=== PATIENT | female | born 1995 | race Caucasian/White ===

== ENCOUNTER 2018-06-17 10:00 | Outpatient (RCR) | payer MEDICAID, SELFPAY ==
--- NOTE | 2018-05-19 08:44 | IE_ITS ---
Date: May 19, 2018 Referring: Agustin May PA-C M.D. Diagnosis: right patellofemoral syndrome SUBJECTIVE: History of Present Illness: Key reports she sustained an injury on March 27 when she squatted to make a bed at home. She felt a pop and a crack in her knee once she resumed the standing position. This was in the right knee. Since that time she has had increased pain in the medial aspect of the patella. She elevates the knee for symptom reduction. Pain Ratin/10 at time of I.E. and 9/10 at its worst Prior Level of Function: Independent with all ambulation and transfers. Current Level of Function: Pain with sit to stand transfers, pain with stairs up and down, pain with transferring out of her car and pain with squatting. Previous Treatment: The patient had a couple of visits at [facility] where she received a stretch and was Geronimo taped. This did offer good symptom control, for an hour, but then became dislodged. There was apparently communication deficits with the PT. facility and the patient, therefore she never received further treatment. Comorbidities: Junior Schlatter both knees. Poor tolerance to NSAIDS secondary to liver issues as a child, with use of liquid gel tab NSAIDS (Advil) . Chronic headaches, nervous and anxiety. Recent weight gain. Asthma. Falls in the last year: __x__ No ____Yes - How many? ____ - (if over 2, balance SM needs to be completed) Reported hospitalizations in the last year - __x__ No ____ Yes - Dates of admission/reason: Quality of Life: __x__ Good Standardized Measures: LEFS score: __61%__ OBJECTIVE: Posture: Morbidly obese female with genu recurvatum bilaterally and moderate pronation bilaterally. She has a pendulous abdomen. She has level iliac crests. Tends to shift her weight to the left to deweight her right leg secondary to medial patella pain. Gait: Mildly antalgic with decreased stance phase on the right. Palpation: Pain with palpation along the medial patella border and medial femoral condyle. Painfree across the medial joint line and MCL. Painfree through the popliteal fossa and painfree through the quad tendon. Edema: N/A Girth measurements: 49.5 cm. left mid pole of the patella vs. 50 cm. right ROM: Hip ROM grossly full with flexion being limited due to patient's pendulous abdomen, abduction 35 to 40 , external rotation 35 A and 40 AA, internal rotation 20 A and 30 AA bilaterally. Knee flexion 108 right with mild end range discomfort compared to 115 left. Foot alignment: 10 to 12 of rearfoot eversion bilaterally. This is WNL in subtalar neutral WB and NWB positions. Strength: 4-/5 quads on the right with mild pain; 4+/5 on the left without pain. Hamstring 4-/5 right; 4/5 left. Glute medius 4-/5 right; 4/5 left. Glute elana 4/5 right; 4+/5 left. She is able to heel and toe walk. Special Tests: (+) Brandin sign. (+) Waldrons. (+) patella compression. (-) varus / valgus. (-) anterior drawer. (-) thessaly. (-) bounce home. Treatment: IE: 85527 x1 Therapeutic procedure: 96751 x1 Patient Education: I.E. followed by patient instruction in a HEP of glute medius strengthening with side lying hip abduction and piriformis strengthening with clamshells as well as SLR, quad sets and an IT band / piriformis posterior hip capsule stretch. Also, issued a Corflex patella stabilizer, which she found to be quite benefit with the step test on an 8 standard stool, for both step up and down for concentric and eccentric loading. Direct treatment time: 2:00 til 3:00 P.M. ASSESSMENT: Patient is a 22-year-old female, referred for PT services with the diagnosis of right patellofemoral syndrome. Patient presents with clinical signs and symptoms consistent with this diagnosis, as demonstrated by the following impairment level findings: impaired joint mobility, motor function, muscle performance and ROM associated with connective tissue dysfunction and localized inflammation Impairments are contributing to the following functional limitations: as listed above Patient is assessed as: __[X]__ Low 33987 complexity, based on the following : History: (list): See comorbidities and social history Examination: (list): See above for functional limitations and impairments. Presentation: [X] Stable . Decision-Making: [X] Low complexity ____ Patient requires skilled PT intervention to remediate the above functional limitations to return to: __x__ Return to full functional mobility *She may also benefit from off the shelf orthotics to restore subtalar joint neutral position. I do not think she is a very good candidate for accommodative orthotics due to her weight. If the off the shelf orthotics do not benefit her she may require casting for permanent orthotics. Prognosis: __x__ Good STG: __6__ weeks. 1) decrease pain by 25% 2) patient independent with her HEP 3) increase right LE strength by 1/2 grade or more 4) decrease LEFS to less than 40% LTG: __12__ weeks. 1) decrease LEFS to less than 25% 2) patient independent in symptom management 3) performing all transfers and stairs without pain PLAN: Patient to be seen 2x per week, for 12 weeks, adjusting frequency of visits per patient symptoms and response to treatment. Treatment to include: Manual therapy - 12619 - medial patella mobs, soft tissue work to desensitize the medial joint line. Stretching of the posterior hip capsule for adduction, IT band and piriformis. Therapeutic procedure - 78022 - open and closed kinetic chain strengthening for hip stabilization, quad strengthening and hamstring strengthening. Ultrasound (78213) - will consider use to the medial patella border for anti inflammatory purposes Will utilize ice post treatment for pain. The patient is in agreement with my POC, and is to be discharged when the above goals have been met. Thank you for this referral. Please do not hesitate to contact me with any questions or concerns regarding this patient's plan of care.
--- NOTE | 2018-05-25 09:19 | PTTR_ITS ---
DATE: 05/25/18 SUBJECTIVE: Key states that she feels as though the patella stabilizer has helped, although it digs into the posterior aspect of knee. She only wears it some of the day. OBJECTIVE: Manual therapy: (61308w7). patella glides in all directions, CFM over medial knee jt line. Stretching of hamstrings, ITB. * x Ultrasound - (x 8 mins) - 86053m7: 50% pulsed to medial knee jt line at 1.1 w/cm2 and 3MHZ. ended with cryo x 10 min. Direct treatment time: 30 min Total treatment time: 40 min
--- NOTE | 2018-05-27 14:36 | PTTR_ITS ---
DATE: 05/27/18 SUBJECTIVE: Key states that her knee is feeling good today. She enters the clinic today without wearing her patella stabilizer. reports wearing it earlier, but did not feel like she needed it later. OBJECTIVE: Manual therapy: (67880l7). patella glides in all directions. CFM over medial knee jt line. Stretching of hamstrings, ITB and quads. Therapeutic procedures (73329b9). * x See flow sheet: following PFPS protocol. * x Provided skilled instruction in proper exercise performance: proper glut engagement * x Ultrasound - (x 8 mins) - 99378p1: 50% pulsed at 3MHZ and 1.1 w/cm2 to medial knee jt line. She ended with cryo x 10 min. Direct treatment time: 45 min Total treatment time: 55 min
--- NOTE | 2018-06-01 14:07 | PTTR_ITS ---
DATE: 06/01/18 SUBJECTIVE: Key states that she is dong a little better. She reports not wearing her brace too often, as she does not feel as though she needs it. She indicated that she held up well after her last session with the added ther ex routine. OBJECTIVE: Manual therapy: (72820x0). briefly stretched right LE, including hamstrings, ITB and hip flex/quad in modified Félix test position. LE distractions via leg pulls. Patella glides in all directions. Therapeutic procedures (78345q3). * x See flow sheet: for global LE strength and stabilizations with focus on quads and gluts. * x Provided skilled instruction in proper exercise performance: proper glut and quad engagement. Held on ultrasound today. She did end with cryo to knee while seated x 10 min. Direct treatment time: 45 min Total treatment time: 55 min.
--- NOTE | 2018-06-04 09:59 | PTTR_ITS ---
DATE: 06/04/18 SUBJECTIVE: Key states that her knee is holding up well. She reports that her other health issues are bothering her today. OBJECTIVE: Manual therapy: (19107i3). patella glides in all directions as well as CFM over medial knee jt line. Stretching of hamstrings, ITB and hip flex/quads in modified Félix test position. Therapeutic procedures (08765o2). * x See flow sheet: for global LE strength and stabilizations. * x Provided skilled instruction in proper exercise performance: proper glut / core engagement She finished via wellness at no charge. Ended with cryo to knee while seated x 10 min. Direct treatment time: 30 min Total treatment time: 60 min
--- NOTE | 2018-06-09 15:14 | PTTR_ITS ---
DATE: 06/09/18 SUBJECTIVE: Key reports 50% reduction in pain since starting P.T. Still has pain in the medial knee joint line and medial patella border. Is holding up well with the strengthening. OBJECTIVE: Manual therapy: (46039x7). Patella mobs superiorly, inferiorly and medially followed by IT band and piriformis stretching using hold relax techniques. Therapeutic procedures (34420d0). * x See flow sheet: glute medius and piriformis hip stabilization strengthening as well as quads and hams. * Verbal and tactile cues were offered for side lying hip abduction to avoid compensatory posterior rotation and excessive hip flexion during this exercise. Also, upgraded SLR to fatigue. She has to rest after 15. She is able to perform 20 with a 3 second hold at end range hip flexion with knee extension. She completed the remainder of her strengthening via Wellness for an additional 20 minutes. Direct treatment time: 30 min. Assessment: 50% reduction in symptoms per subjective reports. Making good gains. Still experiencing difficulty with eccentric loading, particularly stair decention. Plan: Continue as indicated above. She sees Dr. Mckenzie on . I will issue a M.D. note for that recheck appointment. Will continue 2x per week. MM/gc
--- NOTE | 2018-06-11 10:57 | PTTR_ITS ---
DATE: 06/11/18 SUBJECTIVE: Key states that she is doing really well today. She offers no complaints. OBJECTIVE: Manual therapy: (54686y1). patella glides in all directions as well as stretching of her hamstrings, ITB, piriformis and hip flex/quads in modified Félix test position. CFM over medial knee jt line. Therapeutic procedures (06201i1). * x See flow sheet: for global LE strength with focus on gluts as well as patellar stabilization. * x Provided skilled instruction in proper exercise performance: reminders for proper glut engagement Continue to note weakness in her gluts, progress being made in regards to pain complaints. She ended with cryo x 10 min. Direct treatment time: 45 min Total treatment time: 55 min.
--- NOTE | 2018-06-15 15:01 | PTTR_ITS ---
DATE: 06/15/18 SUBJECTIVE: Key states that she saw her PCP yesterday, and she felt as though she is dealing with a pes anserine bursitis. OBJECTIVE: Manual therapy: (32378m3). patella glides in all directions, and stretching of hamstring, ITB and hip flex/ quad in modified Félix test position. CFM over medial knee. Therapeutic procedures (23415r0). * x See flow sheet: for global LE strength and stabilization * x Provided skilled instruction in proper exercise performance: reminders for proper glut engagement especially with lateral step downs. * finished via wellness at no charge. Cryo to end x 10 min. Direct treatment time: 30 min Total treatment time: 50 min
--- NOTE | 2018-06-17 11:37 | PTTR_ITS ---
DATE: 06/17/18 SUBJECTIVE: Key states that she is doing much better. She has been applying lidocaine ointment to medial knee which has helped considerably. OBJECTIVE: Manual therapy: (42406d6). patella glides in all directions. Stretching hamstrings, ITB and hip flex/ quads in modified Félix test position. CFM over pes anserine region.Ended with cryo to knee x 10 min while seated. Therapeutic procedures (60346f8). * [x] See flow sheet: for global LE strengthening with focus on gluts as well as patella stabilization routine. * [x] Provided skilled instruction in proper exercise performance: for proper glut engagement. Direct treatment time: 45 min Total treatment time: 55 min
== END 2018-06-18 23:59 | disposition home or self-care (01) ==
LOC: PT 10:00
PROVIDERS: PCP Physician Assistant Medical; Referring Provider Physician Assistant Surgical; Visit Provider Physician Assistant Surgical
DX: M22.2X1 Patellofemoral disorders, right knee (principal)
CPT/HCPCS: 97035; 97110; 97140; 97161

== ENCOUNTER 2019-01-15 15:47 | Emergency (ER) | payer MEDICAID, SELFPAY ==
[2019-01-15 16:26] VITALS: BP 164/96; PULSE 98; RESP 16; TEMP 37; O2SAT 96
--- NOTE | 2019-01-15 16:30 | DI.RAD_ITS ---
SYMPTOM/DIAGNOSIS: FELL, LT KNEE AND LT HIP PAIN LEFT HIP AND PELVIS: Two views were obtained. No fracture is seen. LEFT KNEE: Three views were obtained. No fracture is seen.
[2019-01-15] MEDS: Acetaminophen 500 MG TAB 1000 MG PO (16:32)
[2019-01-15] MEDS: Ibuprofen 800 MG TAB PO (16:33)
--- NOTE | 2019-01-15 16:49 | ED.GENADUL_ITS ---
Discharge Plan Disposition Patient Disposition: HOME Condition: Good Discharge Details Chief Complaint: Orthopedic Clinical Impression: Knee sprain, Contusion of hip Primary Care Provider: Mahi Romero ED Provider: Avi Dixon Home Meds and New Rx's Prescriptions: No Action nicotine 1 EACH patch 24 hour 1 ea Transdermal DAILY RF: 0 progesterone micronized [Prometrium] 100 MG capsule 10 mg PO DIRECTED RF: 0 adalimumab [Humira] 40 MG/0.8 ML syringe kit 40 mg SQ UNKNOWN RF: 0 ibuprofen 800 MG tablet 800 mg PO Q8H PRN (Reason: Pain) Qty: 15 RF: 0 Discharge Instructions Instructions: Knee Sprain (ED), Contusion in Adults (ED) Additional Instructions: Please take 800 mg of ibuprofen and 1000 mg of Tylenol every 6 hours for pain. Please use plenty of ice every 1-2 hours. Please use the crutches as directed if you notice any worsening of your symptoms, or any new symptoms such as vomiting, diarrhea, fever, chills, shortness of breath, chest pain, numbness, weakness, or fainting , please return immediately to the emergency department for reevaluation. Please follow up with your primary care provider as soon as possible for reassessment and reevaluation. As always, it was a pleasure participating in your medical care today. . Referrals: Mahi Romero [Primary Care Provider] - Medical Decision Making This is a 23-year-old female with a past medical history of PCO S, who presents today after a fall. 2-3 hours prior to arrival she fell and landed on her left hip left knee. She is been able to ambulate since but has had some pain with ambulation. Physical exam demonstrates no significant ligamentous or joint laxity. No crepitus. Reproducible pain on palpation of the left lateral knee and left hip. We will get an x-ray to rule out any acute process or fracture, however I feel the patient did suffer a notable sprain. We will start with Tylenol and Motrin for pain control. 6:30 PM X-ray results have returned, there is no evidence of acute fracture, or other abnormality. Feel the patient signs and symptoms are consistent with notable sprain. Recommend continue Tylenol and Motrin at home, as well as ice and crutches. Recommend David wraps at home, and close follow-up with her primary care provider. With no significant ligamentous laxity, x-ray findings concerning for fracture, or other significant abnormalities of feel the patient be safely discharged home with close follow-up with her PC E. I have extensively reviewed the treatment plan and discharge instructions with the patient and their family. I have addressed all patient concerns at this time. The patient and family was made aware of what symptoms to monitor for that would warrant a return to the emergency department. Discussed the plan with the patient and family, they demonstrate verbal understanding and agreement with our assessment and plan at this time. CLINICAL HISTORY: 23 years old, female; Pain and injury or trauma; Fall; Initial encounter; Sprain or strain; Patella or knee; Left TECHNIQUE: Imaging protocol: XR Left knee 3 views. COMPARISON: No relevant prior studies available. FINDINGS: Bones/joints: Normal. Soft tissues: Normal. IMPRESSION: No acute findings. Dictated and Authenticated by: Gigi Lemon MD. Ordering:DEISI Cárdenas MD CLINICAL HISTORY: 23 years old, female; Injury or trauma; Fall; Initial encounter; Sprain or strain; Left; Pelvic region TECHNIQUE: Imaging protocol: XR Left hip with pelvis when performed, 2 or 3 views COMPARISON: No relevant prior studies available. FINDINGS: Bones/joints: Normal. No acute fracture. Soft tissues: Normal. IMPRESSION: No acute findings. If pain persists, CT may be helpful to rule out occult pathology if clinically indicated. Dictated and Authenticated by: Gigi Lemon MD. Ordering:DEISI Cárdenas MD HPI General Date/Time Provider Initiated Documentation: 01/15/19 16:18 . HPI Narrative: This is a 23-year-old female with a past medical history of PCO S, who presents today for evaluation after a fall. The patient states that roughly 2-3 hours ago she slipped on ice and landed and hit her left hip and left knee. Since then she has had pain with ambulation. She has not taken any Tylenol or Motrin for the pain. She denies hearing any pops. She did not hit her head, chest abdomen. Patient denies any previous injuries to these extremities. Aside for pain with movement, the patient denies any numbness tingling or weakness. She denies any other modifying factors or any other complaints. Related Data Home Medications Medication Instructions Recorded Confirmed progesterone micronized 10 mg PO DIRECTED 12/13/15 06/29/18 [Prometrium] adalimumab [Humira] 40 mg SQ UNKNOWN 02/02/17 06/29/18 ibuprofen 800 mg PO Q8H PRN #15 tab 02/02/17 06/29/18 nicotine 1 ea TRANSDERMAL DAILY script 05/12/18 06/29/18 Previous Rx's Medication Instructions Recorded ibuprofen 800 mg PO Q8H PRN #15 tab 02/02/17 Allergies Allergy/AdvReac Type Severity Reaction Status Date / Time red dye Allergy Mild Unverified 01/15/19 16:42 Sulfa (Sulfonamide AdvReac Severe Hives Unverified 01/15/19 16:42 Antibiotics) cefuroxime axetil AdvReac Intermediate Hives Unverified 01/15/19 16:42 [From Ceftin] General Stated Complaint: Orthopedic SHANTHI: 4 Review of Systems Review of Systems All systems reviewed & are unremarkable except as noted in HPI and below PFSH Social History Smoking/Tobacco Use Status: Current every day Drug use: Never Do you feel safe at home: Yes Do you feel safe in your relationship?: Yes Exam Narrative Exam Narrative: 1.Const: Well-nourished, Well-developed, appearing stated age, morbidly obese 2.Eyes: PERRL, no conjunctival injection, and symmetrical lids. 3.ENT: Atraumatic external nose and ears. Moist MM. Neck: Symmetric, trachea midline, No thyromegaly. 4.CVS: +S1/S2, No murmurs or gallops. Peripheral pulses 2+ and equal in all extremities. Brisk capillary refill in all extremities. 5.RESP: Unlabored respiratory effort. Clear to auscultation bilaterally. No wheezes rales or rhonchi 6.GI: Soft, Nontender/Nondistended, No hepatosplenomegaly. No guarding or rebound. 7.MSK: Normocephalic/Atraumatic, Extremities w/o deformity. No cyanosis or clubbing, Normal movement of all extremities. Left knee: The knee is stable to varus, valgus, and anterior drawer stress. No deformity. Patellar grind test is negative. Mild to moderate pain with ambulation. No edema or warmth to the joint. No ttp to the patella, however there is tenderness on the lateral aspect of the knee. Patient also demonstrates tenderness on the left lateral component of the hip. Pelvis is stable. Pain is greatest over the left greater trochanter. No significant pain with movement of the hip. Patient is able to ambulate with weightbearing with only mild pain. No evidence of trauma on the foot. All compartments are soft. Dorsalis pedis and posterior tibial pulse +2 bilaterally, sensation intact throughout. No midline cervical thoracic or lumbar spine tenderness. 8.Skin: Warm, Dry. No rashes or lesions. 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 Sensation grossly intact, no focal neurologic deficits. 10.Psych: (AAO) x3. Appropriate mood and affect Course Vital Signs Temperature 37.0 C 01/15/19 16:26 Pulse 98 H 01/15/19 16:26 Respiratory Rate 16 01/15/19 16:26 Blood Pressure 164/96 H 01/15/19 16:26 Pulse Oximetry 96 01/15/19 16:26 Temperature 37.0 C 01/15/19 16:26 Temperature Source Temporal Artery Scan 01/15/19 16:26 Pulse 98 H 01/15/19 16:26 Respiratory Rate 16 01/15/19 16:26 Blood Pressure 164/96 H 01/15/19 16:26 Blood Pressure Position Sitting 01/15/19 16:26 Pulse Oximetry 96 01/15/19 16:26 Oxygen Delivery Method Room Air 01/15/19 16:26 Oxygen Flow Rate 0 01/15/19 16:26 Pain Level 8 01/15/19 16:40 Lab/Test Results Lab/Test Results: POC- Test(urine) Negative
--- NOTE | 2019-01-15 17:46 | DI.VRAD_ITS ---
EXAM: XR Left Hip with Pelvis when Performed, 2 or 3 Views EXAM DATE/TIME: 01/15/2019 4:32 PM CLINICAL HISTORY: 23 years old, female; Injury or trauma; Fall; Initial encounter; Sprain or strain; Left; Pelvic region TECHNIQUE: Imaging protocol: XR Left hip with pelvis when performed, 2 or 3 views COMPARISON: No relevant prior studies available. FINDINGS: Bones/joints: Normal. No acute fracture. Soft tissues: Normal. IMPRESSION: No acute findings. If pain persists, CT may be helpful to rule out occult pathology if clinically indicated. Dictated and Authenticated by: Gigi Lemon MD. Ordering:DEISI Cárdenas MD
--- NOTE | 2019-01-15 17:46 | DI.VRAD_ITS ---
EXAM: XR Left Knee, 3 Views EXAM DATE/TIME: 01/15/2019 4:32 PM CLINICAL HISTORY: 23 years old, female; Pain and injury or trauma; Fall; Initial encounter; Sprain or strain; Patella or knee; Left TECHNIQUE: Imaging protocol: XR Left knee 3 views. COMPARISON: No relevant prior studies available. FINDINGS: Bones/joints: Normal. Soft tissues: Normal. IMPRESSION: No acute findings. Dictated and Authenticated by: Gigi Lemon MD. Ordering:DEISI Cárdenas MD
== END 2019-01-15 18:43 | disposition home or self-care (01) ==
PROVIDERS: Emergency Provider Student in an Organized Health Care Education/Training Program; PCP Physician Assistant Medical
DX: S83.92XA Sprain of unspecified site of left knee, initial encounter (principal); S70.02XA Contusion of left hip, initial encounter; W01.0XXA Fall on same level from slipping, tripping and stumbling without subsequent striking against object, initial encounter
CPT/HCPCS: 73562; 81025; 99284; 73502; 99282; E0114

== ENCOUNTER 2019-02-26 20:03 | Emergency (ER) | payer MEDICAID, SELFPAY ==
[2019-02-26 20:05] VITALS: BP 160/95; PULSE 84; RESP 18; TEMP 36.9; O2SAT 98
--- NOTE | 2019-02-26 20:14 | DI.RAD_ITS ---
SYMPTOMS/DIAGNOSIS: RT HAND 5TH RAY PAIN RIGHT HAND: Comparison is made with [id number]. The exam is somewhat limited due to the fingers being held in flexion. There is some overlap of the fingers on the lateral view. No fracture or dislocation is seen. There is a prominent negative ulnar variance. IMPRESSION: No acute abnormality.
--- NOTE | 2019-02-26 20:16 | ED.GENADUL_ITS ---
Discharge Plan Disposition Patient Disposition: HOME Condition: Improving Discharge Details Chief Complaint: Orthopedic Clinical Impression: Contusion of hand, right Primary Care Provider: Mahi Romero ED Provider: Tu Funes Home Meds and New Rx's Prescriptions: No Action progesterone micronized [Prometrium] 100 MG capsule 10 mg PO DIRECTED RF: 0 ibuprofen 800 MG tablet 800 mg PO Q8H PRN (Reason: Pain) Qty: 15 RF: 0 Discharge Instructions Instructions: Contusion in Adults (ED) Additional Instructions: Wear boxer splint 5 to 7 days time as needed. Ice to reduce pain and swelling. Continue ibuprofen and/or Tylenol as needed for discomfort. Return for worsening discomfort or any other concerns Stand Alone Forms: Work Release Medical Decision Making 23-year-old female punched a wall in anger and has right hand distal fifth metacarpal pain. She is given Tylenol and ice, referred for x-ray which does not reveal underlying fracture. She certainly has a distal fifth metacarpal contusion and will benefit from immobilization in a boxer splint. She is stable for home management, understands outpatient care and return precautions. HPI General Mode of arrival: ambulatory . Date/Time Provider Initiated Documentation: 02/26/19 20:10 . Limitations to Documentation: no limitations . Information obtained by: patient . History of Present Illness 23 year old F presents to the emergency department with the chief complaint of Right hand pain after punching a wall, described as moderate, Quality is described as dull, and is localized to the right and upper extremity. Patient reports no radiation. Patient started experiencing this minute(s) and it has been constant. No relieving factors improve symptom(s), No exacerbating factors reported . Patient notes no other symptoms.. Patient did receive the following treatments prior to arrival, none Related Data Home Medications Medication Instructions Recorded Confirmed progesterone micronized 10 mg PO DIRECTED 12/13/15 02/26/19 [Prometrium] ibuprofen 800 mg PO Q8H PRN #15 tab 02/02/17 02/26/19 Previous Rx's Medication Instructions Recorded ibuprofen 800 mg PO Q8H PRN #15 tab 02/02/17 Allergies Allergy/AdvReac Type Severity Reaction Status Date / Time red dye Allergy Mild Unverified 02/26/19 20:12 Sulfa (Sulfonamide AdvReac Severe Hives Unverified 02/26/19 20:12 Antibiotics) cefuroxime axetil AdvReac Intermediate Hives Unverified 02/26/19 20:12 [From Ceftin] General Stated Complaint: Orthopedic SHANTHI: 4 Review of Systems Review of Systems 6 systems reviewed and otherwise neg [facility] Social History Smoking/Tobacco Use Status: Current every day Alcohol Intake: current Alcohol Intake frequency: holidays/special occasions only Drug use: Never Substance use type: does not use Do you feel safe at home: Yes Do you feel safe in your relationship?: Yes Exam Narrative Exam Narrative: GEN: awake, alert, oriented 3. Pleasant, well groomed, interactive. HEAD: Normocephalic, atraumatic ENT: Mucous membranes moist, oropharynx unremarkable, External ear exam unremarkable EYES: PERRL, EOMI EXT: Right hand with fourth and fifth distal metacarpal tenderness. Motor is intact. Sensation intact. 2+ radial pulse in the bilateral upper extrema Neuro: Grossly normal neurologic exam, conversant, interactive. Psych: Speech fluent, thoughts congruent, affect normal Course Vital Signs Temperature 36.9 C 02/26/19 20:05 Pulse 84 02/26/19 20:05 Respiratory Rate 18 02/26/19 20:05 Blood Pressure 160/95 H 02/26/19 20:05 Pulse Oximetry 98 02/26/19 20:05 Temperature 36.9 C 02/26/19 20:05 Temperature Source Skin 02/26/19 20:05 Pulse 84 02/26/19 20:05 Respiratory Rate 18 02/26/19 20:05 Respiratory Effort Non-Labored 02/26/19 20:10 Blood Pressure 160/95 H 02/26/19 20:05 Blood Pressure Position Sitting 02/26/19 20:05 Pulse Oximetry 98 02/26/19 20:05 Oxygen Delivery Method Room Air 02/26/19 20:05 Oxygen Flow Rate 0 02/26/19 20:05 Pain Level 10 02/26/19 20:05
[2019-02-26] MEDS: Acetaminophen 500 MG TAB 1000 MG PO (20:20)
--- NOTE | 2019-02-26 20:39 | DI.VRAD_ITS ---
EXAM: XR Right Hand Complete, 3 or more Views EXAM DATE/TIME: 02/26/2019 8:21 PM CLINICAL HISTORY: 23 years old, female; Right; Patient HX: R hand pain; Per PT: Punched wall TECHNIQUE: Imaging protocol: XR Right hand. Views: 3 or more views COMPARISON: CR RIGHT HAND COMPLETE 02/08/2017 6:00 PM FINDINGS: Bones/joints: Normal. Soft tissues: Normal. IMPRESSION: No acute findings. Dictated and Authenticated by: Gigi Cordon MD. Ordering:JERO Mae MD
== END 2019-02-26 20:39 | disposition home or self-care (01) ==
PROVIDERS: Emergency Provider Emergency Medicine; PCP Physician Assistant Medical
DX: S69.91XA Unspecified injury of right wrist, hand and finger(s), initial encounter (principal); S60.221A Contusion of right hand, initial encounter; W22.09XA Striking against other stationary object, initial encounter
CPT/HCPCS: 29125; 99283; 73130; L3809

== ENCOUNTER 2019-11-12 18:14 | Emergency (ER) | payer MEDICAID, SELFPAY ==
[2019-11-12 18:29] VITALS: BP 151/100; PULSE 82; RESP 16; TEMP 36.8; O2SAT 98
--- NOTE | 2019-11-12 18:33 | ED.GENADUL_ITS ---
Discharge Plan Disposition Patient Disposition: HOME Condition: Good Discharge Details Chief Complaint: Nausea/Vomit/Diar Clinical Impression: Nausea Primary Care Provider: Mahi Romero ED Provider: Nemo Nick Home Meds and New Rx's Prescriptions: New ondansetron 4 mg tablet,disintegrating 4 mg PO Q6H PRN (Reason: nausea and vomiting) Qty: 10 RF: 0 Continued progesterone micronized [Prometrium] 100 MG capsule 10 mg PO DIRECTED RF: 0 ibuprofen 800 MG tablet 800 mg PO Q8H PRN (Reason: Pain) Qty: 15 RF: 0 19 29 mg iron- 1 mg Tablet,Chewable RF: 0 Discharge Instructions Instructions: Ondansetron (By mouth), Acute Nausea and Vomiting (ED) Additional Instructions: Encourage water intake. Encourage weight loss as discussed. You may use the Zofran as needed for recurrent nausea every 6 hours. If you develop f ever/chills, cough, difficulty breathing, inability stay hydrated or other new/worsening symptom please seek care urgently once again. Otherwise complete follow-up primary care next week for reevaluation. Referrals: Mahi Romero [Primary Care Provider] - Medical Decision Making Patient is a pleasant 24-year-old female patient presents today with chief complaint of fatigue and nausea for the past 3 hours. She denies any fevers or chills. No cough. No body aches. Denies any abdominal pain. States that she had one loose bowel movement yesterday but normal today. Was feeling well yesterday and prior to this onset of nausea this afternoon. She has not had any episodes of emesis. States over the past year she has had diminished appetite but otherwise had normal intake today. No unusual change in diet today. No previous abdominal surgeries. She reports minimal water intake of the day and reports that this is typical for her. Patient has history of asthma, diabetes, depression, migraines, obesity, PCOS. LMP September 26, 2019. On exam, patient is nontoxic-appearing. Slightly hypertensive at 151/100. This did come down to 127/54 on recheck. Vital signs otherwise normal. Lungs are clear. Patient does appear dehydrated. Otherwise, normal HEENT exam. Normal cardiac exam. Abdominal exam is benign. At this point, I am unclear as to what caused her nausea. Without any acute abnormalities on exam, did not feel that laboratory intervention is warranted. I am questioning if she may have the beginning onset of illness. She did have this come on rather suddenly, I did consider influenza although without body aches, fevers or cough is very unlikely. We will run a rapid flu, obtain a urine test. Rapid flu was negative. UPT negative. Patient does have small amount of leuks in her UA but is without any urinary symptoms, will hold off on any treatment at this time with culture pending. Discussed findings with [facility] patient. She is able to hydrate at this time and feels improved after zofran. As she has not had any vomiting, has no focal findings on exam and very short period of nausea, will hold off on further intervention at this time. Have advised f/u with PCP next week for reevaluation. Discussed new/worsening symptoms that should prompt urgent evaluation once again. Discussed changes that she may make for overall health imporvement. All of her questions and concerns were addressed, she si in agreement iwth this plan. HPI General Mode of arrival: ambulatory . Date/Time Provider Initiated Documentation: 11/12/19 18:24 . Limitations to Documentation: no limitations . Information obtained by: patient, family and RN notes reviewed . History of Present Illness 24 year old F presents to the emergency department with the chief complaint of fatigue, nausea, described as moderate, Patient started experiencing this hour(s) (3) and it has been constant. No relieving factors improve symptom(s), No exacerbating factors reported . Patient notes loss of appetite (x 3 hours) and nausea/vomiting (nausea, no vomiting); denies chest pain, cough, diaphoresis, fever/chills, headaches, rash, shortness of breath and weakness. Patient did receive the following treatments prior to arrival, none Related Data Home Medications Medication Instructions Recorded Confirmed progesterone micronized 10 mg PO DIRECTED 12/13/15 11/12/19 [Prometrium] ibuprofen 800 mg PO Q8H PRN #15 tab 02/02/17 11/12/19 19 tab 11/12/19 ondansetron 4 mg PO Q6H PRN #10 tab 11/12/19 Previous Rx's Medication Instructions Recorded ibuprofen 800 mg PO Q8H PRN #15 tab 02/02/17 ondansetron 4 mg PO Q6H PRN #10 tab 01/25/20 Allergies Allergy/AdvReac Type Severity Reaction Status Date / Time red dye Allergy Mild Unverified 02/26/19 20:12 Sulfa (Sulfonamide AdvReac Severe Hives Unverified 02/26/19 20:12 Antibiotics) cefuroxime axetil AdvReac Intermediate Hives Unverified 02/26/19 20:12 [From Ceftin] General Stated Complaint: Nausea/Vomit/Diar SHANTHI: 3 Review of Systems Constitutional Constitutional: Reports as per HPI, Denies chills, Reports fatigue, Denies fever(s), Denies headache(s) and Reports poor appetite Eyes Eyes: Reports as per HPI, Denies eye discharge and Denies irritation ENT Ears, Nose, Mouth, and Throat: Reports as per HPI and Denies headache(s) Cardiovascular Cardiovascular: Reports as per HPI, Denies chest pain and Denies dyspnea Respiratory Respiratory: Reports as per HPI, Denies chest congestion, Denies cough, Denies hemoptysis, Denies excessive phlegm production and Denies dyspnea Gastrointestinal Gastrointestinal: Reports as per HPI, Denies abdominal pain, Denies change in bowel habits, Denies change in stool character, Reports nausea and Denies vomiting Integumentary/Breasts Skin/Breast: Reports as per HPI and Denies rash Neurologic Neurologic: Reports as per HPI and Denies headache(s) Endocrine Endocrine: Reports fatigue PFSH Social History Smoking/Tobacco Use Status: Current every day Alcohol Intake: current Alcohol Intake frequency: holidays/special occasions only Drug use: Never Substance use type: does not use Do you feel safe at home: Yes Do you feel safe in your relationship?: Yes Exam Const General: cooperative, healthy appearing, comfortable, no acute distress, well developed and well groomed Nutritional Appearance: well nourished and obese Orientation: alert and awake [facility] Head: normal to inspection, normocephalic and atraumatic Ears: hearing grossly normal bilaterally, external ears normal and TM's normal bilaterally General nose exam: external nose normal and nares normal Face and sinus: normal facial exam, sinuses nontender and face symmetric Mouth: oral mucosae normal, lip normal, tongue normal, oropharynx normal and mucous membranes dry (patient appears dry) Teeth and gingiva: dentition normal Throat: posterior oropharynx normal, tonsils normal and uvula midline Eyes General: appearance normal, both eyes and all related structures Neck Neck: normal visual inspection, full ROM, no lymphadenopathy and no meningeal signs Resp Effort & Inspection: normal respiratory effort, able to speak in complete sentences and no respiratory distress Auscultation: clear to auscultation bilaterally, no rales, no rhonchi and no wheezes Cardio Rate: regular rate Rhythm: regular rhythm Heart Sounds: S1 normal and S2 normal GI Inspection: normal to inspection, no edema, non-distended, obesity, no visible herniation and no visible pulsation Palpation: soft, no hepatosplenomegaly, not firm, no guarding, no hernias, not rigid and nontender Percussion: normal to percussion Auscultation: normal bowel sounds Back/Spine/Pelvis Back: no CVA tenderness Skin General skin exam: no rashes or lesions noted Neuro General: alert and awake Cognition: normal cognition Speech: speech normal Gait: normal gait Psych Appearance: grossly normal and well kempt Mental Status: mental status grossly normal Speech and Movement: speech and movement normal Course Vital Signs Vital signs: Vital Signs Temperature 36.8 C 11/12/19 18:29 Pulse 82 11/12/19 18:29 Respiratory Rate 16 11/12/19 18:29 Blood Pressure 151/100 H 11/12/19 18:29 Pulse Oximetry 98 11/12/19 18:29 Temperature 36.8 C 11/12/19 18:29 Temperature Source Temporal Artery Scan 11/12/19 18:29 Pulse 82 11/12/19 18:29 Respiratory Rate 16 11/12/19 18:29 Blood Pressure 151/100 H 11/12/19 18:29 Pulse Oximetry 98 11/12/19 18:29 Oxygen Delivery Method Room Air 11/12/19 18:29 Oxygen Flow Rate 0 11/12/19 18:29
[2019-11-12 18:48] LABS: Bilirubin Negative (Negative); Blood Negative (Negative); Clarity Clear (Clear); Glucose Negative (Negative); Ketones Negative (Negative); Leukocyte Esterase Small (Negative); Nitrite Negative (Negative); Urobilinogen 0.2 EU/dL (Up TO 0.2)
[2019-11-12] MEDS: Ondansetron O.D.T. 4 MG TABEF PO (19:06)
[2019-11-12 19:20] LABS: Bacteria Moderate HPF (Negative); C & S Indicated? No/Sq. Contamination; Casts Negative LPF (Negative); Crystals Negative HPF (Negative); Epithelial Cells Many HPF (Negative); Mucus Negative (Negative); WBC 20-50 HPF (0-5)
[2019-11-12 19:46] VITALS: BP 127/54; PULSE 67; RESP 17; TEMP 37; O2SAT 95
[2019-11-12] MEDS: Ondansetron O.D.T. 4 MG TABEF 8 MG PO (20:00)
== END 2019-11-12 20:05 | disposition home or self-care (01) ==
PROVIDERS: Emergency Provider Physician Assistant; PCP Physician Assistant Medical
DX: R11.0 Nausea (principal); R53.83 Other fatigue
CPT/HCPCS: 87449; 87880; 99283; 81003; 81015

== ENCOUNTER 2019-12-27 11:42 | Emergency (ER) | payer MEDICAID, SELFPAY ==
--- NOTE | 2019-12-27 11:45 | DI.RAD_ITS ---
EXAM: XR KNEE RT 4V+ CLINICAL HISTORY: Child directly on anterior knee, need sunrise view. TECHNIQUE: 2D digital imaging was performed. COMPARISON: RIGHT KNEE COMPLETE from 03/27/2018 FINDINGS: BONES: No acute fracture is present. No bony destructive lesion is seen. JOINTS: The knee is normally aligned. No joint effusion is seen. SOFT TISSUE: Normal. IMPRESSION: Unremarkable radiographs of the right knee. Findings were discussed with the emergency department on the date of the examination. DATA REPOSITORY: RADIATION DOSE DELIVERED:
[2019-12-27 11:46] VITALS: BP 148/99; PULSE 78; TEMP 36.7; O2SAT 97
--- NOTE | 2019-12-27 11:59 | ED.GENADUL_ITS ---
Discharge Plan Disposition Patient Disposition: HOME Condition: Stable Discharge Details Chief Complaint: Orthopedic Clinical Impression: Knee pain Primary Care Provider: Mahi Romero ED Provider: Lino Stoll Home Meds and New Rx's Prescriptions: Continued progesterone micronized [Prometrium] 100 MG capsule 10 mg PO DIRECTED RF: 0 ibuprofen 800 MG tablet 800 mg PO Q8H PRN (Reason: Pain) Qty: 15 RF: 0 19 29 mg iron- 1 mg Tablet,Chewable RF: 0 ondansetron 4 mg tablet,disintegrating 4 mg PO Q6H PRN (Reason: nausea and vomiting) Qty: 10 RF: 0 Discharge Instructions Instructions: Knee Pain (ED) Additional Instructions: Wear David wrap and use crutches as needed, advance activity as tolerated. Rest, elevate, cool compresses every 2 hours for 20 minutes. Please watch for new or worsening symptoms and return to the ER for any concerns. [id number] Tylenol and/or Motrin as directed for discomfort. I do recommend reaching out to your primary care provider for outpatient reevaluation. If symptoms persist, additional imaging and/or physical therapy may be indicated. Medical Decision Making 24-year-old female with a mechanical fall, catching her foot on a small stoop or ledge, causing her to land on her right leg. Reports anterior right knee pain, worse with walking. No other injuries. She does have a small abrasion with tenderness to the anterior inferior aspect of her knee. There is no bony point tenderness. She is able to bear weight, full range of motion, knee is stable. Likely contusion but will obtain x-ray to rule any bony involvement Discussed x-ray with patient and family. Discussed treatment options. Patient would like her knee wrapped with an David wrap and to be provided with crutches. We discussed [id number] Tylenol and/or Motrin for discomfort, elevation, cool compresses, advancing activity as tolerated Medical Records Medical records reviewed: Yes I reviewed the patient's medical records. Imaging Data Radiologic Study: Attestation: I personally reviewed and interpreted this imaging study as follows: Imaging: X-Ray My impression: Right knee x-ray read by me as negative HPI General Mode of arrival: ambulatory . Date/Time Provider Initiated Documentation: 12/27/19 11:45 . Limitations to Documentation: no limitations . Information obtained by: patient . HPI Narrative: 24-year-old female presents having had a slip and mechanical fall outside around 945 this morning landing directly on her right knee. Reports pain is mild at rest moderate with movement or bearing weight. Denies any other injury. Denies striking her head, numbness, tingling, weakness. She reports that she has needed to go to physical therapy for that right knee in the past but was no longer going and was not having any issues with her knee until a fall today. Related Data Home Medications Medication Instructions Recorded Confirmed progesterone micronized 10 mg PO DIRECTED 12/13/15 12/27/19 [Prometrium] ibuprofen 800 mg PO Q8H PRN #15 tab 02/02/17 12/27/19 19 tab 11/12/19 ondansetron 4 mg PO Q6H PRN #10 tab 11/12/19 12/27/19 Previous Rx's Medication Instructions Recorded ibuprofen 800 mg PO Q8H PRN #15 tab 02/02/17 ondansetron 4 mg PO Q6H PRN #10 tab 11/12/19 Allergies Allergy/AdvReac Type Severity Reaction Status Date / Time red dye Allergy Mild Unverified 12/27/19 11:51 Sulfa (Sulfonamide AdvReac Severe Hives Unverified 12/27/19 11:51 Antibiotics) cefuroxime axetil AdvReac Intermediate Hives Unverified 12/27/19 11:51 [From Ceftin] General Stated Complaint: Orthopedic SHANTHI: 4 Review of Systems Constitutional Constitutional: Denies headache(s) and Denies weakness ENT Ears, Nose, Mouth, and Throat: Denies headache(s) Gastrointestinal Gastrointestinal: Denies nausea Musculoskeletal Musculoskeletal: Denies back pain, Denies numbness and Denies tingling Integumentary/Breasts Skin/Breast: Denies rash Neurologic Neurologic: Denies headache(s), Denies numbness, Denies tingling and Denies weakness [facility] Social History Smoking/Tobacco Use Status: Current every day Tobacco Type: cigarettes Alcohol Intake: current Alcohol Intake frequency: holidays/special occasions only Drug use: Never Substance use type: does not use Do you feel safe at home: Yes Do you feel safe in your relationship?: Yes Exam Const General: cooperative, healthy appearing, comfortable and no acute distress Orientation: alert and awake [facility] Head: normal to inspection, normocephalic and atraumatic Mouth: moist mucous membranes Eyes Conjunctivae: conjunctivae normal Neck Neck: normal visual inspection, trachea midline and supple Resp Effort & Inspection: normal respiratory effort and able to speak in complete sentences Cardio Rate: regular rate Rhythm: regular rhythm Skin General skin exam: no rashes or lesions noted Neuro General: alert, awake, moves all extremities and no focal motor deficits Sensory Exam: no sensory deficits noted Extrem Right lower extremity: knee Details: tenderness (Anterior just inferior to the patella), normal ROM, knee ligament exam normal and abrasion (Anterior, just inferior to the patella) Psych Appearance: grossly normal Mental Status: mental status grossly normal Course Vital Signs Vital signs: Vital Signs Temperature 36.7 C 12/27/19 11:46 Pulse 78 12/27/19 11:46 Blood Pressure 148/99 H 12/27/19 11:46 Pulse Oximetry 97 12/27/19 11:46 Temperature 36.7 C 12/27/19 11:46 Temperature Source Temporal Artery Scan 12/27/19 11:46 Pulse 78 12/27/19 11:46 Respiratory Effort Non-Labored 12/27/19 11:48 Blood Pressure 148/99 H 12/27/19 11:46 Blood Pressure Position Sitting 12/27/19 11:46 Pulse Oximetry 97 12/27/19 11:46 Oxygen Delivery Method Room Air 12/27/19 11:46 Oxygen Flow Rate 0 12/27/19 11:46 Pain Level 9 12/27/19 11:48
== END 2019-12-27 12:51 | disposition home or self-care (01) ==
PROVIDERS: Emergency Provider Physician Assistant; PCP Physician Assistant Medical
DX: S80.211A Abrasion, right knee, initial encounter (principal); W18.39XA Other fall on same level, initial encounter
CPT/HCPCS: 99283; 73564; E0114

== ENCOUNTER 2020-03-02 10:18 | Outpatient (CLI) | payer MEDICAID, SELFPAY ==
--- NOTE | 2020-03-02 09:45 | DI.RAD_ITS ---
EXAM: XR KNEE RT 2V AP,LAT CLINICAL HISTORY: pain after injury directly to patella on 02/22/20 TECHNIQUE: COMPARISON: CR XR KNEE RT 4V+ from 12/27/2019 FINDINGS: Merchant view and lateral view of the knee were obtained. No patellar fracture identified on this li mited series. No evidence of knee joint effusion. No other bony abnormality seen. IMPRESSION:
== END 2020-03-02 10:38 ==
PROVIDERS: PCP Physician Assistant Medical; Referring Provider Physician Assistant Medical; Visit Provider Physician Assistant
DX: M25.561 Pain in right knee (principal); S89.81XA Other specified injuries of right lower leg, initial encounter
CPT/HCPCS: 73560

== ENCOUNTER 2020-03-16 02:07 | Outpatient (CLI) | payer MEDICAID, SELFPAY ==
[2020-03-16 08:41] LABS: HCG Quant, Pregnancy < 1 mIU/mL (1-3)
[2020-03-16 22:15] LABS: Progesterone 0.3 ng/mL (See Table)
== END 2020-03-16 02:27 ==
PROVIDERS: PCP Physician Assistant Medical
DX: Z31.41 Encounter for fertility testing (principal)
CPT/HCPCS: 36415; 84144; 84702

== ENCOUNTER 2020-04-06 03:59 | Outpatient (CLI) | payer MEDICAID, SELFPAY ==
[2020-04-06 22:16] LABS: Progesterone 0.4 ng/mL (See Table)
== END 2020-04-06 04:19 ==
PROVIDERS: PCP Physician Assistant Medical; Visit Provider Obstetrics & Gynecology Gynecology
DX: Z31.41 Encounter for fertility testing (principal)
CPT/HCPCS: 36415; 84144

== ENCOUNTER 2020-05-01 04:53 | Outpatient (CLI) | payer MEDICAID, SELFPAY ==
[2020-05-01 17:11] LABS: Progesterone 9.2 ng/mL (See Table)
== END 2020-05-01 05:13 ==
PROVIDERS: PCP Physician Assistant Medical; Visit Provider Obstetrics & Gynecology Gynecology
DX: Z31.41 Encounter for fertility testing (principal)
CPT/HCPCS: 36415; 84144

== ENCOUNTER 2020-05-14 02:28 | Outpatient (CLI) | payer MEDICAID, SELFPAY ==
[2020-05-14 15:33] LABS: HCG Quant, Pregnancy < 1 mIU/mL (1-3)
== END 2020-05-14 02:48 ==
PROVIDERS: PCP Physician Assistant Medical
DX: Z32.00 Encounter for pregnancy test, result unknown (principal)
CPT/HCPCS: 36415; 84702

== ENCOUNTER 2020-06-19 04:38 | Outpatient (CLI) | payer MEDICAID, SELFPAY ==
[2020-06-19 12:23] LABS: HCG Quant, Pregnancy < 1 mIU/mL (1-3)
== END 2020-06-19 04:58 ==
PROVIDERS: Obstetrics & Gynecology Reproductive Endocrinology; PCP Physician Assistant Medical; Visit Provider Obstetrics & Gynecology
DX: Z32.02 Encounter for pregnancy test, result negative (principal)
CPT/HCPCS: 36415; 84702

== ENCOUNTER 2020-06-29 02:36 | Outpatient (CLI) | payer MEDICAID, SELFPAY ==
[2020-06-29 14:42] LABS: HCG Quant, Pregnancy < 1 mIU/mL (1-3)
[2020-06-29 22:58] LABS: Progesterone 0.5 ng/mL (See Table)
== END 2020-06-29 02:56 ==
PROVIDERS: PCP Physician Assistant Medical; Visit Provider Obstetrics & Gynecology
DX: N91.2 Amenorrhea, unspecified (principal)
CPT/HCPCS: 36415; 84144; 84702

== ENCOUNTER 2020-08-03 20:12 | Emergency (ER) | payer MEDICAID, SELFPAY ==
[2020-08-03 20:16] VITALS: BP 163/117; PULSE 87; RESP 18; TEMP 36.6; O2SAT 94
--- NOTE | 2020-08-03 20:53 | ED.GENADUL_ITS ---
Discharge Plan Disposition Patient Disposition: HOME Condition: Good Discharge Details Clinical Impression: Migraine Primary Care Provider: Mahi Romero ED Provider: Rosas Kelley Meds and New Rx's Prescriptions: Continued letrozole 2.5 mg tablet 5 mg PO DAILY RF: 0 19 29 mg iron- 1 mg Tablet,Chewable 1 tab PO DAILY RF: 0 cholecalciferol (vitamin D3) [Vitamin D3] 50 mcg (2,000 unit) Tablet 50 mcg PO DAILY RF: 0 Discharge Instructions Instructions: Migraine Headache (ED) Additional Instructions: Home and rest over the weekend. Drink plenty of fluids. Follow-up with primary care next week if continued issues with headache. Return to ED for neurologic changes, new or different headache, vomiting, other concerns. Referrals: Mahi Romero [Primary Care Provider] - Medical Decision Making Patient presents to ED with migraine headache. She is afebrile. She has a normal neurologic exam. She is on fertility treatment and trying to get . Currently on her period now. Is supposed to avoid nonsteroidals. Will treat with IV fluids and IV Compazine and reevaluate. Headache resolved with Compazine and fluids. She has no pain and feels back to normal. Discharge home to follow-up with PCP as needed. HPI General Mode of arrival: wheelchair . Date/Time Provider Initiated Documentation: 08/03/20 20:39 . Limitations to Documentation: no limitations . Information obtained by: patient and RN notes reviewed . HPI Narrative: Patient presents to ED with migraine headache. Patient has history of same. Started out as regular headache earlier today. Was shopping all day and has subsequently developed severe headache despite taking Tylenol at home. She does have frequent headaches though typically not severe. Has however had ED presentations for headache. This headache does not feel different and is not worst headache of her life. She has photophobia but no neurologic change, nausea or vomiting. She has no fever, cough, shortness of breath. Related Data Home Medications Medication Instructions Recorded Confirmed 19 1 tab PO DAILY 11/12/19 08/03/20 letrozole 2.5 mg tablet 5 mg PO DAILY tab 04/13/20 08/03/20 cholecalciferol (vitamin D3) 50 mcg PO DAILY 08/03/20 08/03/20 [Vitamin D3] Allergies Allergy/AdvReac Type Severity Reaction Status Date / Time red dye Allergy Mild Unverified 08/03/20 20:27 Sulfa (Sulfonamide AdvReac Severe Hives Unverified 08/03/20 20:27 Antibiotics) cefuroxime axetil AdvReac Intermediate Hives Unverified 08/03/20 20:27 [From Ceftin] General Stated Complaint: Headache SHANTHI: 3 Review of Systems Narrative: As documented in HPI otherwise negative as below. Const: no fever, chills, weakness Resp: no cough, SOB, pleuritic pain CV: no CP, diaphoresis, edema, syncope GI: no abdominal pain, nausea, vomiting, diarrhea Neuro: no numbness, focal weakness, confusion PFSH Medical History Migraine Obesities, morbid Right patellofemoral syndrome Social History Smoking/Tobacco Use Status: Current every day Tobacco Type: cigarettes Alcohol Intake: current Alcohol Intake frequency: holidays/special occasions only Drug use: Never Substance use type: does not use Current gender identity: female Do you feel safe at home: Yes Do you feel safe in your relationship?: Yes Exam Narrative Exam Narrative: Vitals: Afebrile. Elevated blood pressure otherwise normal vitals. Const: Obese female who appears uncomfortable. HEENT: NC/AT. Normal facial exam. Eyes: PERRL and EOMI Neck: Supple. Trachea midline. Lungs: Normal respiratory effort. Cor: Good radial pulses. Neuro: A+O x 3. Normal speech, mentation, gait. Cranial nerves II - XII grossly intact. No gross motor or sensory deficit. Skin: Warm and dry without rash. Course Vital Signs Vital signs: Vital Signs Temperature 97.9 F 08/03/20 20:16 Pulse 87 08/03/20 20:16 Respiratory Rate 18 08/03/20 20:16 Blood Pressure 163/117 H 08/03/20 20:16 Pulse Oximetry 94 08/03/20 20:16 Temperature 97.9 F 08/03/20 20:16 Temperature Source Skin 08/03/20 20:16 Pulse 87 08/03/20 20:16 Respiratory Rate 18 08/03/20 20:16 Respiratory Effort 08/03/20 20:29 Blood Pressure 163/117 H 08/03/20 20:16 Blood Pressure Position Sitting 08/03/20 20:16 Pulse Oximetry 94 08/03/20 20:16 Oxygen Delivery Method Room Air 08/03/20 20:16 Oxygen Flow Rate 0 08/03/20 20:16 Pain Level 10 08/03/20 20:16 Comment 08/03/20 20:16
[2020-08-03] MEDS: Lactated Ringers 1,000 ML 1000 ML IV (21:45)
[2020-08-03] MEDS: Prochlorperazine 10 MG/2 ML VIAL IVP (21:45)
[2020-08-03 22:30] VITALS: BP 162/87; PULSE 70; RESP 18; O2SAT 97
[2020-08-03 22:31] VITALS: BP 162/87; PULSE 70; RESP 97
[2020-08-03 22:35] VITALS: TEMP 36.8
== END 2020-08-03 22:30 | disposition home or self-care (01) ==
LOC: ER 22:22
PROVIDERS: Emergency Provider Emergency Medicine; PCP Physician Assistant Medical
DX: G43.809 Other migraine, not intractable, without status migrainosus (principal)
CPT/HCPCS: 96361; 96374; 99284; 99283; J0780

== ENCOUNTER 2022-10-04 15:06 | Emergency (ER) | payer MEDICAID, SELFPAY ==
[2022-10-04 15:19] VITALS: BP 144/71; PULSE 79; RESP 16; TEMP 36.9; O2SAT 98
--- NOTE | 2022-10-04 16:00 | RT.EKG_ITS ---
APPROVED REPORT Exam: Resting ECG Reason for Exam: Midepigastric pain Patient Location: E HR:76 bpm ECG Measurements Heart Rate 76 AXIS NM 173 P 32 QRSd 99 QRS 79 QT 382 T 38 QTc 429 Conclusion Sinus rhythm...normal P axis, V-rate 60- 99 Nonspecific T abnormalities, lateral leads...T <-0.10mV, I aVL V5 V6 sinus rhythm, normal axis, normal intervals, non ischemic
--- NOTE | 2022-10-04 16:01 | W.ED.GENAD ---
Discharge Plan Disposition Patient Disposition: Home Condition: Stable Discharge Details Clinical Impression: Midepigastric pain, GERD (gastroesophageal reflux disease) Primary Care Provider: Mahi Romero ED Provider: Keke Lipscomb Home Meds and New Rx's Prescriptions: No Action acetaminophen 500 mg Tablet 1,000 mg PO Q6H PRN Discharge Instructions Instructions: GERD (Gastroesophageal Reflux Disease) (ED), Abdominal Pain (ED) Additional Instructions: Outpatient ultrasound of Abdomen was ordered to evaluate gallbladder and stomach. Please call radiology department to schedule this exam. Cardiac work-up shows no abnormality with your heart. Follow up with primary care provider in 3-5 days. Return to ED sooner if any worsening pain, vomiting, or concerns. Increase oral fluids. May take an [id number] antacid such as Maalox or similar if this seems to help. Referrals: Mahi Romero [Primary Care Provider] - 3 days (Follow-up regarding ultrasound result or return to ER if findings positive) Discharge Data Discharge Date/Time-TO BE ENTERED AT DEPARTURE: 10/04/22 17:23 Medical Decision Making 26-year-old female presents with chief complaint of midepigastric abdominal pain which radiates into the back she reports this for the last 2 days. She reports that it feels like something gets stuck right above her stomach and she has to force it down. She denies any nausea vomiting no diarrhea. She she does not report some shortness of breath, no dizziness no diaphoresis. She did have her wisdom teeth removed a week ago on . She does have a past medical history of morbid obesity, she is a smoker, migraines. No other associated symptoms reported. Initially SARS COVID and rapid strep order from the waiting room, upon further evaluation EKG ordered with screening labs and a GI cocktail. Differential diagnosis includes but not limited to PR, GERD, ulcer, esophageal stricture, EKG is within normal limit, please see Dr. Maddison Medrano's report old EKG available for review. Troponin negative, labs are largely unremarkable. She does have a 14.56 white blood cell count, did instruct her to take an [id number]-[id number] antacid and discussed strict return instructions to return for any worsening pain or concerns. Patient verbalized understanding. This text was generated using [employer] system, please disregard any oddities of phrase or misspellings. Lab Data Lab results reviewed: Yes I reviewed the patient's lab results. Labs: Laboratory Tests Range/Units 10/04/22 10/04/22 16:35 16:35 WBC (4.4-10.8) 10^3/uL 14.56 H RBC (3.93-5.22) 10^6/uL 5.03 Hgb (11.2-15.7) g/dL 14.3 Hct (36.0-46.0) % 44.8 MCV (80-95) fL 89 MCH (27.0-33.0) pg 28.4 MCHC (32.0-36.0) % 31.9 L RDW (11.7-14.6) % 13.8 Plt Count (130-400) 10^3/uL 316 MPV (8.0-11.0) fL 9.2 Immature Gran % 0.2 Neutrophils % 67.6 Lymphocytes % 22.7 Monocytes % 8.0 Eosinophils % 1.2 Basophils % 0.3 Nucleated RBC % (0.0-0.3) % 0.0 Absolute Neutrophils (1.2-6.7) 10^3/uL 9.84 H Absolute Lymphocytes (1.2-3.4) 10^3/uL 3.31 Absolute Monocytes (0.1-0.8) 10^3/uL 1.16 H Absolute Eosinophils (0.0-0.7) 10^3/uL 0.17 Absolute Basophils (0.0-0.2) 10^3/uL 0.04 Sodium (136-145) mmol/L 140 Potassium (3.5-5.1) mmol/L 3.6 Chloride (98-107) mmol/L 103 Carbon Dioxide (21.0-32.0) mmol/L 29.7 Anion Gap (3-11) mmol/L 7.3 BUN (7-18) mg/dL 9 Creatinine (0.55-1.02) mg/dL 0.8 Est GFR (CKD-EPI 2020) (mL/min/1.73m2) 103.50 Glucose (74-106) mg/dL 104 Calcium (8.5-10.1) mg/dL 8.9 Total Bilirubin (0.2-1.0) mg/dL 0.3 AST (15-37) U/L 18 ALT (14-59) U/L 16 Alkaline Phosphatase (46-116) U/L 72 Troponin I (<or=60) ng/L < 50 Total Protein (6.4-8.2) g/dL 8.5 H Albumin (3.4-5.0) g/dL 3.5 Lipase (73-393) U/L 112 HPI General Mode of arrival: ambulatory. Date/Time Provider Initiated Documentation: 10/04/22 15:23. Limitations to Documentation: no limitations. Information obtained by: patient, RN notes reviewed and old records reviewed. HPI Narrative: 26-year-old female presents with chief complaint of midepigastric abdominal pain which radiates into the back she reports this for the last 2 days. She reports that it feels like something gets stuck right above her stomach and she has to force it down. She denies any nausea vomiting no diarrhea. She she does not report some shortness of breath, no dizziness no diaphoresis. She did have her wisdom teeth removed a week ago on . She does have a past medical history of morbid obesity, she is a smoker, migraines. No other associated symptoms reported. Related Data Home Medications Medication Instructions Recorded Confirmed acetaminophen 500 mg tablet 1,000 mg PO Q6H PRN 10/04/22 10/04/22 Allergies Allergy/AdvReac Type Severity Reaction Status Date / Time red dye Allergy Mild Unverified 10/04/22 15:25 shellfish derived AdvReac Severe Swelling/Ed Unverified 10/04/22 15:25 hannah Sulfa (Sulfonamide AdvReac Severe Hives Unverified 10/04/22 15:25 Antibiotics) cefuroxime axetil AdvReac Intermediate Hives Unverified 10/04/22 15:25 [From Ceftin] General Stated Complaint: Nk/Back Pain SHANTHI: 3 Review of Systems All systems reviewed & are unremarkable except as noted in HPI and below ENT Ears, Nose, Mouth, and Throat: Reports odynophagia Gastrointestinal Gastrointestinal: Reports as per HPI, Reports early satiety, Reports dyspepsia, Reports heartburn and Reports odynophagia PFSH All Active Problems (Updated 10/04/22 @ 17:13 by Keke Lipscomb NP) Midepigastric pain (Acute) GERD (gastroesophageal reflux disease) (Chronic) Obesities, morbid (Acute) Migraine (Chronic) Right patellofemoral syndrome (Acute) Medical History Migraine Obesities, morbid Right patellofemoral syndrome Social History Smoking/Tobacco Use Status: Current every day Tobacco Type: cigarettes Smoking risk assessment performed?: Yes Alcohol Intake: current Alcohol Intake frequency: holidays/special occasions only Drug use: Daily Substance use type: marijuana Current gender identity: female Do you feel safe at home: Yes Do you feel safe in your relationship?: Yes Exam Narrative Exam Narrative: Constitutional: Alert and oriented x3. Appears stated age. Obese body habitus. Head: Normocephalic, no trauma. Eyes: Pupils PERRL, Red reflex noted, EOM's intact. Eyelids symmetrical without lesions, discharge, or swelling. ENT: Bilateral TM's WNL, External ear normal to inspection, no mastoid TTP, swelling, or erythema, Nasal turbinates WNL, no nasal discharge. Normal dentition, Posterior pharynx WNL, no exudate. Chest: RRR, Normal S1, S2, distal pulses intact. Resp: Lungs clear to auscultation bilaterally, no wheezes, rales, or rhonchi. Abdomen: Soft, non-distended, Normoactive bowel sounds all 4 quads. Musculoskeletal: Normal gait, 5/5 strength to all four extremities. Skin: No suspicious rashes or lesions. Capillary refill less than 2 sec. Neurologic: Cranial nerves II-XII intact. Alert and oriented x 3. Motor: No deficits noted. Sensory: Intact bilaterally all 4 extremities. Reflexes: DTR's intact bilaterally.. Hematologic/Lymphatic: No ecchymosis, no lymphadenopathy. Course Vital Signs Vital signs: Vital Signs Temperature 36.9 C 10/04/22 15:19 Pulse 79 10/04/22 15:19 Respiratory Rate 16 10/04/22 15:19 Blood Pressure 144/71 H 10/04/22 15:19 Pulse Oximetry 98 10/04/22 15:19 Temperature 36.9 C 10/04/22 15:19 Pulse 79 10/04/22 15:19 Respiratory Rate 16 10/04/22 15:19 Respiratory Effort 10/04/22 15:23 Blood Pressure 144/71 H 10/04/22 15:19 Blood Pressure Position Sitting 10/04/22 15:19 Pulse Oximetry 98 10/04/22 15:19 Oxygen Delivery Method Room Air 10/04/22 15:19 Oxygen Flow Rate 0 10/04/22 15:19 Pain Level 8 10/04/22 15:19
[2022-10-04 16:41] LABS: Abs Immature Grans 0.03 10^3/uL (0.0-0.06); Absolute Monocyte Count 1.16 10^3/uL (0.1-0.8); Absolute Neutrophil Count 9.84 10^3/uL (1.2-6.7); Basophils % 0.3; Eosinophils % 1.2; HCT 44.8 % (36.0-46.0); HGB 14.3 g/dL (11.2-15.7); Immature Grans % 0.2; Lymphocytes % 22.7; MCH 28.4 pg (27.0-33.0); MCHC 31.9 % (32.0-36.0); MCV 89 fL (80-95); MPV 9.2 fL (8.0-11.0); Neutrophils % 67.6; Platelet Count 316 10^3/uL (130-400); RBC 5.03 10^6/uL (3.93-5.22); RDW 13.8 % (11.7-14.6); RDW-SD 44.7 fL; WBC 14.56 10^3/uL (4.4-10.8)
[2022-10-04] MEDS: Mylanta Suspension 30 ML CUP (16:41)
[2022-10-04] MEDS: Lidocaine 2% Viscous 15 ML CUP PO (16:41)
[2022-10-04 16:42] LABS: Absolute Basophil Count 0.04 10^3/uL (0.0-0.2); Absolute Eosinophil Count 0.17 10^3/uL (0.0-0.7); Absolute Lymphocyte Count 3.31 10^3/uL (1.2-3.4)
[2022-10-04 17:01] LABS: ALT 16 U/L (14-59); AST 18 U/L (15-37); Albumin 3.5 g/dL (3.4-5.0); Alkaline Phosphatase 72 U/L (46-116); Anion Gap 7.3 mmol/L (3-11); BUN 9 mg/dL (7-18); Bilirubin, Total 0.3 mg/dL (0.2-1.0); CO2 29.7 mmol/L (21.0-32.0); CREATININE 0.8 mg/dL (0.55-1.02); Calcium 8.9 mg/dL (8.5-10.1); Chloride 103 mmol/L (98-107); Glucose 104 mg/dL (74-106); Lipase 112 U/L (73-393); Potassium 3.6 mmol/L (3.5-5.1); Sodium 140 mmol/L (136-145); Total Protein 8.5 g/dL (6.4-8.2); Troponin I < 50 ng/L (<or=60)
--- NOTE | 2022-10-06 08:54 | NUR.NOTE ---
Nursing Note: Accessed chart to determine orders for EKG and to determine whether or not one needs to be cancelled. EKG needs to be read.
== END 2022-10-04 17:23 | disposition home or self-care (01) ==
PROVIDERS: Emergency Provider Registered Nurse Emergency; PCP Physician Assistant Medical
DX: K21.9 Gastro-esophageal reflux disease without esophagitis (principal); E66.9 Obesity, unspecified; Z20.822 Contact with and (suspected) exposure to COVID-19
CPT/HCPCS: 80053; 83690; 87880; 93005; 99283; 84484; 85025; 93010

== ENCOUNTER → 2022-10-07 01:10 | Outpatient (CLI) | payer MEDICAID, SELFPAY ==
--- NOTE | 2022-10-07 | DI.US_ITS ---
Exam(s) US ABDOMEN LIMITED EXAM: US ABDOMEN LIMITED CLINICAL HISTORY: MID EPIGASTRIC PAIN TECHNIQUE: Ultrasound abdomen performed using standard protocol. COMPARISON: No exams were available for comparison FINDINGS: There is no ascites evident. LIVER: Liver is slightly prominent in size and hyperechoic indicating steatosis. There are no discre te focal hepatic lesions identified. GALLBLADDER/BILIARY: There are no gallstones. No gallbladder wall edema nor pericholecystic fluid. The common hepatic duct isnot dilated, measuring 4mm at the level of cheryl hepatis. PANCREAS: There is no evidence of pancreatic mass nor dilatation of the pancreatic duct. RIGHT KIDNEY:No evidence of solid mass, calculus, nor hydronephrosis. No cortical cysts evident. IMPRESSION: 1. No evidence of cholelithiasis nor dilatation of the biliary tree. 2. Hepatic steatosis. Correlation appropriate hepatic blood work recommended. 3. No other significant right upper quadrant ultrasound findings. DATA REPOSITORY:
== END ==
PROVIDERS: PCP Physician Assistant Medical; Visit Provider Registered Nurse Emergency
DX: K76.0 Fatty (change of) liver, not elsewhere classified (principal)
CPT/HCPCS: 76705

== ENCOUNTER 2023-05-21 03:58 | Outpatient (CLI) | payer MEDICAID, SELFPAY ==
[2023-05-21 07:34] LABS: Abs Immature Grans 0.01 10^3/uL (0.0-0.06); Absolute Basophil Count 0.06 10^3/uL (0.0-0.2); Absolute Eosinophil Count 0.18 10^3/uL (0.0-0.7); Absolute Lymphocyte Count 2.71 10^3/uL (1.2-3.4); Absolute Monocyte Count 0.76 10^3/uL (0.1-0.8); Absolute Neutrophil Count 5.06 10^3/uL (1.2-6.7); Basophils % 0.7; Eosinophils % 2.1; HCT 47.7 % (36.0-46.0); HGB 15.4 g/dL (11.2-15.7); Immature Grans % 0.1; Lymphocytes % 30.9; MCH 28.7 pg (27.0-33.0); MCHC 32.3 % (32.0-36.0); MCV 89 fL (80-95); Monocytes % 8.7; Neutrophils % 57.5; Platelet Count 299 10^3/uL (130-400); RBC 5.36 10^6/uL (3.93-5.22); RDW 13.7 % (11.7-14.6); RDW-SD 44.4 fL; WBC 8.78 10^3/uL (4.4-10.8)
[2023-05-21 08:22] LABS: Hemoglobin A1C 5.7 % (<5.7)
[2023-05-21 09:14] LABS: HCG Qual (Serum) Negative
[2023-05-21 09:15] LABS: ALT 23 U/L (14-59); AST 31 U/L (15-37); Albumin 3.7 g/dL (3.4-5.0); Alkaline Phosphatase 79 U/L (46-116); Anion Gap 6.6 mmol/L (3-11); BUN 11 mg/dL (7-18); Bilirubin, Total 0.4 mg/dL (0.2-1.0); CO2 32.4 mmol/L (21.0-32.0); CREATININE 0.8 mg/dL (0.55-1.02); Calcium 9.1 mg/dL (8.5-10.1); Calculated LDL 85 mg/dL (<100); Chloride 103 mmol/L (98-107); Cholesterol 146 mg/dL (<200); Estimated GFR 102.86 (mL/min/1.73m2); Glucose 98 mg/dL (74-106); HDL Cholesterol 43 mg/dL (40-60); Potassium 4.2 mmol/L (3.5-5.1); Sodium 142 mmol/L (136-145); TSH 2.73 uIU/mL (0.36-3.74); Total Protein 8.7 g/dL (6.4-8.2); Triglyceride 91 mg/dL (<150)
== END 2023-05-21 03:59 | disposition home or self-care (01) ==
PROVIDERS: PCP Physician Assistant Medical; Visit Provider Physician Assistant Medical
DX: N91.0 Primary amenorrhea (principal); R94.5 Abnormal results of liver function studies; R73.03 Prediabetes; R53.83 Other fatigue; E66.8 Other obesity
CPT/HCPCS: 36415; 80053; 80061; 83036; 84443; 84703; 85025

== ENCOUNTER 2023-06-01 21:09 | Emergency (ER) | payer MEDICAID, SELFPAY ==
[2023-06-01 21:31] VITALS: BP 146/69; PULSE 73; RESP 21; TEMP 37.1; O2SAT 96
--- NOTE | 2023-06-01 22:03 | ED.GENADUL_ITS ---
Discharge Plan Disposition Patient Disposition: Home Condition: Stable Discharge Details Clinical Impression: Lumbar back sprain, Muscle spasm Primary Care Provider: Mahi Romero ED Provider: Gigi Murillo Home Meds and New Rx's Prescriptions: New cyclobenzaprine 10 mg tablet 10 mg PO TID PRN (Reason: muscle spasm) Qty: 20 0RF Continued acetaminophen 500 mg Tablet 1,000 mg PO Q6H PRN medroxyprogesterone 10 mg tablet 10 mg PO DAILY Patient Comments: TAKE 1 TABLET BY MOUTH DAILY Rx Instructions: for 10 days every other month for menstruation Discharge Instructions Instructions: Muscle Spasm (ED) Additional Instructions: follow up with your primary care provider if symptoms continue in one week if you feel more ill, have severe worsening pain or new pain such as abdominal pain return to the emergency department Medical Decision Making 27 yo female comes in with cc of lower back pain. She states around 1pm today she was sitting on a bench, stood up and had severe lower back pain. Denies falling or other injuries, states she felt well prior to this pain starting. She denies fevers, chills, chest pain, dyspnea, abdominal pain. She localizes the pain to the lower lumbar region. She has bilateral paraspinous muscle pain, no cva tenderness, no midline l/t spine tenderness. She has no saddle anesthesia and normal distal sensation and pulses. She denies hx of ivdu and no fevers. Suspect spasm based on history, no findings on history or physical to suggest entities such as cauda equina, spinal epidural abscess, osteomyelitis, or fracture. Will treat with norflex and toradol and reassess. pt feels significantly better, has minimal discomfort now and feels well enough for discharge, stable exam with no saddle anesthesia and normal distal sensation and pulses. Will prescribe flexeril and advised to f/u with pcp, return precautions given Differential Diagnosis Differential Diagnosis: muscle spasm, lumbar strain HPI General Mode of arrival: ambulatory . Date/Time Provider Initiated Documentation: 06/01/23 21:40 . Limitations to Documentation: no limitations . Information obtained by: patient . History of Present Illness 27 year old F presents to the emergency department with the chief complaint of back pain, described as moderate, Patient started experiencing this hour(s) (9) and it has been constant. No relieving factors improve symptom(s), No exacerbating factors reported . Patient notes no other symptoms.. Patient did receive the following treatments prior to arrival, none Related Data Home Medications Medication Instructions Recorded Confirmed acetaminophen 500 mg tablet 1,000 mg PO Q6H PRN 10/04/22 06/01/23 cyclobenzaprine 10 mg tablet 10 mg PO TID PRN muscle spasm #20 06/01/23 tabs medroxyprogesterone 10 mg tablet 10 mg PO DAILY 06/01/23 06/01/23 Previous Rx's Medication Instructions Recorded cyclobenzaprine 10 mg tablet 10 mg PO TID PRN muscle spasm #20 06/01/23 tabs Allergies Allergy/AdvReac Type Severity Reaction Status Date / Time red dye Allergy Mild Unverified 06/01/23 21:30 shellfish derived AdvReac Severe Swelling/Ed Unverified 06/01/23 21:30 hannah Sulfa (Sulfonamide AdvReac Severe Hives Unverified 06/01/23 21:30 Antibiotics) cefuroxime axetil AdvReac Intermediate Hives Unverified 06/01/23 21:30 [From Ceftin] General Stated Complaint: Nk/Back Pain SHANTHI: 3 Review of Systems All systems reviewed & are unremarkable except as noted in HPI and below Constitutional Constitutional: Denies chills, Denies fever(s) and Denies weakness Cardiovascular Cardiovascular: Denies chest pain and Denies dyspnea Respiratory Respiratory: Denies cough and Denies dyspnea Gastrointestinal Gastrointestinal: Denies abdominal pain, Denies nausea and Denies vomiting Musculoskeletal Musculoskeletal: Denies joint swelling Neurologic Neurologic: Denies weakness PFSH All Active Problems (Updated 06/01/23 @ 22:41 by Gigi Murillo MD) Lumbar back sprain (Acute) Muscle spasm (Acute) Obesities, morbid (Acute) Migraine (Chronic) Right patellofemoral syndrome (Acute) Medical History Migraine Obesities, morbid Right patellofemoral syndrome Social History Smoking/Tobacco Use Status: Current every day Tobacco Type: cigarettes Smoking risk assessment performed?: Yes Alcohol Intake: current Alcohol Intake frequency: holidays/special occasions only Drug use: Daily Substance use type: marijuana Details: at night to sleep Housing: other Current gender identity: female Do you feel safe at home: Yes Do you feel safe in your relationship?: Yes Exam Const General: no acute distress Orientation: alert HENMT Head: normal to inspection Ears: external ears normal General nose exam: external nose normal Mouth: moist mucous membranes Eyes General: appearance normal, both eyes and all related structures Neck Neck: normal visual inspection Resp Effort & Inspection: normal respiratory effort and able to speak in complete sentences Auscultation: clear to auscultation bilaterally Cardio Jugular venous pressure: no JVD Rate: regular rate Heart Sounds: no murmurs GI Palpation: soft and nontender Back/Spine/Pelvis Back: no CVA tenderness Skin General skin exam: no rashes or lesions noted Neuro General: patient alert and patient oriented x3 Extrem General: normal to inspection Psych Mental Status: mental status grossly normal Course Vital Signs Vital signs: Vital Signs Temperature 37.1 C 06/01/23 21:31 Pulse 73 06/01/23 21:31 Respiratory Rate 21 06/01/23 21:31 Blood Pressure 146/69 H 06/01/23 21:31 Pulse Oximetry 96 06/01/23 21:31 Temperature 37.1 C 06/01/23 21:31 Temperature Source Temporal Artery Scan 06/01/23 21:31 Pulse 73 06/01/23 21:31 Respiratory Rate 21 06/01/23 21:31 Respiratory Effort Normal, Non-Labored 06/01/23 21:36 Blood Pressure 146/69 H 06/01/23 21:31 Blood Pressure Position Sitting 06/01/23 21:31 Pulse Oximetry 96 06/01/23 21:31 Oxygen Delivery Method Room Air 06/01/23 21:31 Oxygen Flow Rate 0 06/01/23 21:31 Pain Level 10 06/01/23 21:31
[2023-06-01] MEDS: Ketorolac 15 MG/ML VIAL IVP (22:15)
[2023-06-01] MEDS: Orphenadrine 60 MG/2 ML VIAL IVP (22:15)
== END 2023-06-01 22:49 | disposition home or self-care (01) ==
PROVIDERS: Emergency Provider Emergency Medicine; PCP Physician Assistant Medical
DX: S33.5XXA Sprain of ligaments of lumbar spine, initial encounter (principal); M62.838 Other muscle spasm; X58.XXXA Exposure to other specified factors, initial encounter
CPT/HCPCS: 96374; 96375; 99284; J2360; J1885

== ENCOUNTER 2025-04-13 10:11 | Emergency (ER) | payer SELFPAY ==
[2025-04-13 10:14] VITALS: BP 137/72; PULSE 87; RESP 18; TEMP 36.2; O2SAT 97
--- NOTE | 2025-04-13 10:15 | DI.CT_ITS ---
Exam(s) CT ABDOMEN PELVIS W EXAM: CT ABDOMEN PELVIS W CLINICAL HISTORY: lower pelvic pain. TECHNIQUE: Imaging Protocol: Axial computed tomography images with coronal and sagittal reformatted images were created and reviewed CONTRAST MATERIAL: Intravenous: Omnipaque 350 Contrast volume:70 ml Oral: no COMPARISON: No exams were available for comparison FINDINGS: ABDOMEN and PELVIS: Lung Bases: No acute findings. Liver: Enlarged, 20 cm in length.. Mild hepatic steatosis.. No suspicious mass. Gallbladder and biliary tract: No radiodense calculus. No wall thickening or pericholecystic fluid. No biliary dilation. Pancreas: Normal density. No abnormal calcifications or inflammatory process. No evidence of mass. Spleen: Normal. Kidneys: Normal size, contour and axis. No radiodense stones. No obstructive uropathy. No suspicious masses seen. Adrenal glands: No masses seen. Vasculature: Abdominal aorta non-dilated. Soft tissues: Unremarkable. Bladder: No gross wall thickening. No calculi.No focal mass. Bowel: No obstruction. No bowel wall thickening. Appendix normal. Normal quantity of stool. Peritoneal cavity: No ascites. No focal collection. No mesenteric inflammatory response. No free air. Bones: Unremarkable for age. Reproductive organs: Unremarkable. Lymph nodes: No pathologically enlarged lymph nodes. IMPRESSION:: No acute abnormality in the abdomen or pelvis. RADIATION DOSE DELIVERED: 1,483.44mGy.cm Total DLP DATA REPOSITORY: All CT scans at this facility are submitted to the National Radiology Data Registry (NRDR) Dose Index Registry (DIR) with the [employer] ([employer]). RADIATION OPTIMIZATION: All CT scans at this facility use at least one of these dose optimization techniques: automated exposure control; mA and/or kV adjustment per patient size (includes targeted exams where dose is matched to clinical indication); or iterative reconstruction.
--- NOTE | 2025-04-13 10:37 | ED.GENADUL_ITS ---
Discharge Plan Disposition Patient Disposition: Home Condition: Good Discharge Details Clinical Impression: Abdominal pain Primary Care Provider: Mahi Romero ED Provider: Avi Dixon Home Meds and New Rx's Prescriptions: No Action acetaminophen 500 mg Tablet 1,000 mg PO Q6H PRN medroxyprogesterone 10 mg tablet 10 mg PO DAILY Patient Comments: TAKE 1 TABLET BY MOUTH DAILY Rx Instructions: for 10 days every other month for menstruation cyclobenzaprine 10 mg tablet 10 mg PO TID PRN (Reason: muscle spasm) Qty: 20 0RF Discharge Instructions Instructions: Abdominal pain Additional Instructions: At this time your urinalysis, blood work and CT imaging shows no evidence of significant abnormality, infection or pathology. Please take Tylenol and Motrin as needed for pain. Please drink plenty of fluids and stay well-hydrated. If you notice any worsening of your symptoms, or any new symptoms such as vomiting, diarrhea, fever, chills, shortness of breath, chest pain, numbness, weakness, or fainting , please return immediately to the emergency department for reevaluation. Please follow up with your primary care provider as soon as possible for reassessment and reevaluation. As always, it was a pleasure participating in your medical care today. Referrals: Mahi Romero [Primary Care Provider, Medicine] Discharge Data Discharge Date/Time-TO BE ENTERED AT DEPARTURE: 04/13/25 14:06 HPI General Date/Time Provider Initiated Documentation: 04/13/25 10:20 . HPI Narrative: 29-year-old female with past medical history of dysregulated periods currently on medroxyprogesterone, BMI of 57, sleep apnea, who presents today for evaluation of lower abdominal/pelvic pain. Patient states that at around 9:10 AM she developed sudden onset sharp lower abdominal pain. She had no associated urinary complaints, she had nausea but no vomiting. She denies fever or chills. She denies any chest pain. No history of kidney stones. Pain is persistent, but comes and goes in severity. No radiation anywhere else. She denies any other modifying factors. She denies any vaginal discharge or bleeding. Related Data Home Medications ?Medication ?Instructions ?Recorded ?Confirmed acetaminophen 500 mg tablet 1,000 mg PO Q6H PRN 04/13/25 cyclobenzaprine 10 mg tablet 10 mg PO TID PRN muscle s pasm #20 06/01/23 04/13/25 tabs medroxyprogesterone 10 mg tablet 10 mg PO DAILY 04/13/25 Previous Rx's ?Medication ?Instructions ?Recorded cyclobenzaprine 10 mg tablet 10 mg PO TID PRN muscle s pasm #20 06/01/23 tabs Allergies Allergy/AdvReac Type Severity Reaction Status Date / Time red dye Allergy Mild Other (See Unverified 04/13/25 10:29 Comment) shellfish derived AdvReac Severe Swelling/Ed Unverified 04/13/25 10:29 hannah Sulfa (Sulfonamide AdvReac Severe Hives Unverified 04/13/25 10:29 Antibiotics) cefuroxime axetil (From AdvReac Intermediate Hives Unverified 04/13/25 10:29 Ceftin) General Stated Complaint: Abd Prob SHANTHI: 3 Exam Narrative Exam Narrative: 1.Const: Well-nourished, Well-developed, appearing stated age 2.Eyes: PERRL, no conjunctival injection, and symmetrical lids. 3.ENT: Atraumatic external nose and ears. Moist MM. Neck: Symmetric, trachea midline, No thyromegaly. 4.CVS: +S1/S2, Peripheral pulses 2+ and equal in all extremities. Brisk capillary refill in all extremities. 5.RESP: Unlabored respiratory effort. Clear to auscultation bilaterally. No wheezes rales or rhonchi 6.GI: Soft, nondistended, no hepatosplenomegaly. Patient does have reproducible tenderness in the pelvic region, left and right lower abdominal quadrants. No inguinal hernia. 7.MSK: Normocephalic/Atraumatic, Extremities w/o deformity or ttp No cyanosis or clubbing, Normal movement of all extremities 8.Skin: Warm, Dry. No rashes or lesions. 9.Neuro: secondary connector armature II-XII grossly intact. Sensation grossly intact, no focal neurologic deficits. 10.Psych: (AAO) x3. Appropriate mood and affect Course Vital Signs Vital signs: Vital Signs Temperature 36.2 C L 04/13/25 10:14 Pulse 87 04/13/25 10:14 Respiratory Rate 18 04/13/25 10:14 Blood Pressure 137/72 04/13/25 10:14 Pulse Oximetry 97 04/13/25 10:14 Temperature 36.2 C L 04/13/25 10:14 Temperature Source Tympanic 04/13/25 10:14 Pulse 87 04/13/25 10:14 Respiratory Rate 18 04/13/25 10:14 Blood Pressure 137/72 04/13/25 10:14 Pulse Oximetry 97 04/13/25 10:14 Oxygen Delivery Method Room Air 04/13/25 10:14 Oxygen Flow Rate 0 04/13/25 10:14 Pain Level 6 04/13/25 10:14 Lab/Test Results Lab/Test Results: POC- Test(urine) Negative Medical Decision Making 29-year-old female with past medical history of dysregulated periods currently on medroxyprogesterone, BMI of 57, sleep apnea, who presents today for evaluation of lower abdominal/pelvic pain. Patient states that at around 9:10 AM she developed sudden onset sharp lower abdominal pain. She had no associated urinary complaints, she had nausea but no vomiting. She denies fever or chills. She denies any chest pain. No history of kidney stones. Pain is persistent, but comes and goes in severity. No radiation anywhere else. She denies any other modifying factors. She denies any vaginal discharge or bleeding. Exam demonstrates a well-appearing female, stable vital signs, reproducible lower abdominal and pelvic pain, no hernias. No vaginal discharge. Differential includes UTI, pyelonephritis, kidney stone, less likely ovarian pathology, but of concern is potential ovarian cyst or torsion. Ectopic is unlikely given her control use. Diverticulitis is of concern. Will treat her pain, rehydrate, evaluate for these concerning etiologies, monitor closely and reassess. 3:[address] scan shows no evidence of acute process in the abdomen or pelvis. Unremarkable CT scan otherwise. Laboratory workup is returned notably benign. Patient's pain has completely resolved. Urinalysis shows no UTI. Patient feels well and is requesting discharge. Uncertain as to the initial cause of her symptomatology, but adhesion, cramps, or other nonlife threatening etiology remains on the differential. Patient stable for discharge. Discussed red flags for which to return. I have extensively reviewed the treatment plan and discharge instructions with the patient and their family. I have addressed all patient concerns at this time. The patient and family was made aware of what symptoms to monitor for that would warrant a return to the emergency department. Discussed the plan with the patient and family, they demonstrate verbal understanding and agreement with our assessment and plan at this time. The documentation in this chart was dictated using [employer] dictation software. Please excuse any dictation errors. FINDINGS: ABDOMEN and PELVIS: Lung Bases: No acute findings. Liver: Enlarged, 20 cm in length.. Mild hepatic steatosis.. No suspicious mass. Gallbladder and biliary tract: No radiodense calculus. No wall thickening or pericholecystic fluid. No biliary dilation. Pancreas: Normal density. No abnormal calcifications or inflammatory process. N o evidence of mass. Spleen: Normal. Kidneys: Normal size, contour and axis. No radiodense stones. No obstructive uropathy. No suspicious masses seen. Adrenal glands: No masses seen. Vasculature: Abdominal aorta non-dilated. Soft tissues: Unremarkable. Bladder: No gross wall thickening. No calculi.No focal mass. Bowel: No obstruction. No bowel wall thickening. Appendix normal. Normal quantity of stool. Peritoneal cavity: No ascites. No focal collection. No mesenteric inflammatory response. No free air. Bones: Unremarkable for age. Reproductive organs: Unremarkable. Lymph nodes: No pathologically enlarged lymph nodes. IMPRESSION:: No acute abnormality in the abdomen or pelvis. PFSH All Active Problems (Updated 04/13/25 @ 13:46 by Avi Dixon DO) Abdominal pain (Acute) Obesities, morbid (Acute) Migraine (Chronic) Right patellofemoral syndrome (Acute) Medical History (Updated 04/13/25 @ 13:46 by Avi Dixon DO) Skin problem Sleep apnea Bilateral leg pain Low back pain Surgical History (Updated 06/29/24 @ 14:17 by Jessie Vargas) Hx of tonsillectomy Family History (Updated 06/29/24 @ 14:19 by Jessie Vargas) Mother Diabetes Myocardial infarction Maternal Grandfather Myocardial infarction Father Diabetes Aunt Diabetes Social History (Updated 06/29/24 @ 14:19 by Jessie Vargas) Smoking/Tobacco Use Status: Current every day Tobacco Type: cigarettes Smoking packs per day: 1 Smoking cigarettes per day: 20.0 Smoking risk assessment performed?: Yes Alcohol Intake: current Alcohol Intake frequency: holidays/special occasions only Drug use: Daily Substance use type: marijuana Details: at night to sleep Housing: other Current gender identity: female Do you feel safe at home: Yes Do you feel safe in your relationship?: Yes
[2025-04-13 10:43] LABS: Bilirubin Negative (Negative); Blood Negative (Negative); Clarity Clear (Clear); Glucose Negative (Negative); Ketones Negative (Negative); Leukocyte Esterase Negative (Negative); Nitrite Negative (Negative); Specific Gravity 1.025 (1.005-1.025); Urobilinogen 0.2 mg/dL (Up to 0.2)
[2025-04-13] MEDS: Ketorolac 15 MG/ML VIAL IVP (10:47)
--- NOTE | 2025-04-13 10:47 | NUR.NOTE ---
Nursing Note: PT declining morphine at this time
[2025-04-13] MEDS: Normal Saline 500 ML IV (10:48)
[2025-04-13 10:49] LABS: Lactate 1.2 mmol/L (<or=2.0)
[2025-04-13 10:50] LABS: Abs Immature Grans 0.03 10^3/uL (0.0-0.06); Absolute Basophil Count 0.05 10^3/uL (0.0-0.2); Absolute Eosinophil Count 0.13 10^3/uL (0.0-0.7); Absolute Lymphocyte Count 2.31 10^3/uL (1.2-3.4); Absolute Monocyte Count 0.86 10^3/uL (0.1-0.8); Absolute Neutrophil Count 5.82 10^3/uL (1.2-6.7); Basophils % 0.5 %; Eosinophils % 1.4 %; HCT 46.1 % (36.0-46.0); HGB 15.1 g/dL (11.2-15.7); Immature Grans % 0.3 %; Lymphocytes % 25.1 %; MCHC 32.8 % (32.0-36.0); MCV 89 fL (80-95); MPV 8.8 fL (8.0-11.0); Monocytes % 9.3 %; Neutrophils % 63.4 %; Platelet Count 286 10^3/uL (130-400); RDW 13.3 % (11.7-14.6); RDW-SD 43.5 fL
[2025-04-13 11:13] LABS: ALT 20 U/L (14-59); AST 23 U/L (15-37); Albumin 3.4 g/dL (3.4-5.0); Alkaline Phosphatase 80 U/L (46-116); Anion Gap 6.7 mmol/L (3-11); BUN 10 mg/dL (7-18); Bilirubin, Total 0.5 mg/dL (0.2-1.0); CO2 29.3 mmol/L (21.0-32.0); CREATININE 0.8 mg/dL (0.55-1.02); Calcium 8.9 mg/dL (8.5-10.1); Chloride 103 mmol/L (98-107); Estimated GFR 101.59 (mL/min/1.73m2); Glucose 99 mg/dL (74-106); Lipase 32 U/L (<78); Potassium 4.2 mmol/L (3.5-5.1); Sodium 139 mmol/L (136-145); Total Protein 8.2 g/dL (6.4-8.2)
[2025-04-13] MEDS: Omnipaque 350 MG/ML 100 ML BTL IJ (12:42)
[2025-04-13] MEDS: Normal Saline - Diluent 50 ML VIAL IJ (12:43)
[2025-04-13 14:16] VITALS: BP 143/87; PULSE 64; RESP 16; O2SAT 97
== END 2025-04-13 14:06 | disposition home or self-care (01) ==
PROVIDERS: Emergency Provider Student in an Organized Health Care Education/Training Program; PCP Physician Assistant Medical
DX: R10.30 Lower abdominal pain, unspecified (principal); R11.0 Nausea
CPT/HCPCS: 99283; 99285; 81025; 80053; 83690; 74177; 81003; 83605; 85025; J1885; J3490